=== PATIENT | male | born 1970 | race African-American/Black ===

== ENCOUNTER 2018-10-02 14:56 | Inpatient (IN) ==
[2018-10-02] MEDS ORDERED: fentaNYL Citrate Inj 100 MCG/2 ML Ampul ONE (15:00)
[2018-10-02 15:26] LABS: Baso % (Auto) 0.4 % (0.0-2.0); Eos # (Auto) 0.1 th/mm3 (0.0-0.4); Eos % (Auto) 0.9 % (0.0-4.0); Hematocrit 40.3 % (39.0-51.0); Hemoglobin 14.7 gm/dL (13.0-17.0); Lymph # (Auto) 2.4 th/mm3 (1.0-4.8); Lymph % (Auto) 41.8 % (9.0-44.0); Mean Corpuscular Hemoglobin 33.7 pg (27.0-34.0); Mean Corpuscular Volume 92.3 fL (80.0-100.0); Mean Platelet Volume 7.8 fL (7.0-11.0); Mono # (Auto) 0.5 th/mm3 (0.0-0.9); Mono % (Auto) 7.9 % (0.0-8.0); Neut # (Auto) 2.8 th/mm3 (1.8-7.7); Platelet Count 166 th/mm3 (150-450); Red Blood Count 4.37 mil/mm3 (4.50-5.90); Red Cell Distribution Width 13.2 % (11.6-17.2); White Blood Count 5.7 th/mm3 (4.0-11.0)
[2018-10-02 15:27] LABS: Mean Corpuscular HGB Conc 36.5 % (32.0-36.0)
--- NOTE | 2018-10-02 15:29 | CT ---
EXAM DATE: 10/02/2018 3:26 PM EST AGE/SEX: 89 years / Male INDICATIONS: Trauma, fell off roof. Head injury. CLINICAL DATA: This is the patient's initial encounter. Patient reports that signs and symptoms have been present for 1 day and indicates a pain score of Nonresponsive. MEDICAL/SURGICAL HISTORY: Non-responsive. Non-responsive. RADIATION DOSE: 66.34 CTDI (mGy) ;Tabletop exam COMPARISON: No prior exams available for comparison. TECHNIQUE: CT of the head without contrast. Using automated exposure control and adjustment of the mA and/or kV according to patient size, radiation dose was kept as low as reasonably achievable to ob tain optimal diagnostic quality images. DICOM format image data is available electronically for revi ew and comparison. FINDINGS: Cerebrum: The ventricles are normal for age. No evidence of midline shift, mass lesion, hemorrhage or acute infarction. No extraaxial fluid collections are seen. Posterior Fossa: The cerebellum and brainstem are intact. The 4th ventricle is midline. The cerebe llopontine angle is unremarkable. Extracranial: The visualized portion of the orbits is intact. Skull: The calvaria is intact. No evidence of skull fracture. CONCLUSION: 1. Negative CT Head non contrast. . Electronically signed by: George Espino MD Board Certified Radiologist 10/02/2018 3:27 PM EST
--- NOTE | 2018-10-02 15:29 | XR ---
EXAM DATE: 10/02/2018 3:24 PM EST AGE/SEX: 89 years / Male INDICATIONS: Trauma alert. Patient fell off of a roof at work today. CLINICAL DATA: This is the patient's initial encounter. Patient reports that signs and symptoms have been present for 1 day and indicates a pain score of 10/10. MEDICAL/SURGICAL HISTORY: Non-responsive. Non-responsive. COMPARISON: No prior exams available for comparison. FINDINGS: A single AP view of the chest demonstrates the lungs to be symmetrically aerated without evidence of mass, infiltrate or effusion. The cardiomediastinal contours are unremarkable. Osseous structures a re intact. CONCLUSION: Negative examination. Electronically signed by: George Espino MD Board Certified Radiologist 10/02/2018 3:28 PM EST
--- NOTE | 2018-10-02 15:30 | XR ---
EXAM DATE: 10/02/2018 3:26 PM EST AGE/SEX: 89 years / Male INDICATIONS: Trauma alert. Patient fell off of a roof at work today. CLINICAL DATA: This is the patient's initial encounter. Patient reports that signs and symptoms have been present for 1 day and indicates a pain score of 10/10. MEDICAL/SURGICAL HISTORY: Non-responsive. Non-responsive. COMPARISON: No prior exams available for comparison. FINDINGS: Examination of the pelvis demonstrates no evidence of fracture or dislocation. Bony mineralization i s normal. There is no widening of the sacroiliac joints. No foreign body is identified. Mild degene rative changes are noted involving the hips and lower lumbar spine. CONCLUSION: 1. No acute fracture or dislocation. 2. Mild degenerative changes involving the hips and lower lumbar spine. Electronically signed by: George Espino MD Board Certified Radiologist 10/02/2018 3:28 PM EST
[2018-10-02 15:32] LABS: Activated Partial Thrombo Time 24.7 sec (23.4-31.7); INR 1.1 Ratio; Prothrombin Time 10.7 sec (9.8-11.6)
--- NOTE | 2018-10-02 15:32 | XR ---
EXAM DATE: 10/02/2018 3:22 PM EST AGE/SEX: 89 years / Male INDICATIONS: Trauma alert. Patient fell off roof at work today. CLINICAL DATA: This is the patient's initial encounter. Patient reports that signs and symptoms have been present for 1 day and indicates a pain score of 10/10. MEDICAL/SURGICAL HISTORY: Non-responsive. Non-responsive. COMPARISON: No prior exams available for comparison. FINDINGS: A single view of the forearm demonstrates dislocation of the distal humerus in relation to the radius and ulna. Comminuted displaced fracture of the distal radius is also noted but incompletely evaluate d. Dedicated left wrist series would be helpful for further characterization of this finding. CONCLUSION: 1. Acute dislocation of the distal humerus in relation to the radius and ulna. 2. Comminuted displaced fracture of the distal radius which is incompletely evaluated. Dedicated lef t wrist series would be helpful for further characterization of this finding. Electronically signed by: George Espino MD Board Certified Radiologist 10/02/2018 3:30 PM EST
--- NOTE | 2018-10-02 15:41 | CT ---
EXAM DATE: 10/02/2018 3:33 PM EST AGE/SEX: 89 years / Male INDICATIONS: Trauma, fell of roof. CLINICAL DATA: This is the patient's initial encounter. Patient reports that signs and symptoms have been present for 1 day and indicates a pain score of Nonresponsive. MEDICAL/SURGICAL HISTORY: Non-responsive. Non-responsive. RADIATION DOSE: 6.42 CTDI (mGy) ; Combined studies COMPARISON: No prior exams available for comparison. TECHNIQUE: Multiple contiguous axial images were obtained through the chest during bolus infusion of 98 ml Omnipaque 350 (iohexol) nonionic water-soluble contrast as a cumulative dose for multiple exa ms. Images were obtained in suspended respiration using multiple row detector helical technique. U sing automated exposure control and adjustment of the mA and/or kV according to patient size, radiati on dose was kept as low as reasonably achievable to obtain optimal diagnostic quality images. DICOM format image data is available electronically for review and comparison. FINDINGS: Lungs: The lungs are symmetrically aerated. No infiltrates or nodular densities are seen. Mild biba silar posterior atelectatic changes are noted. Mediastinum: There is good visualization of the great vessels of the middle mediastinum. No evidenc e of mediastinal or hilar adenopathy/mass. Pleurae: No evidence of focal thickening or pleural effusion. Axillae: Unremarkable. Bony Structures: Degenerative changes are noted throughout the thoracic spine. Miscellaneous: The examination was extended to include the upper abdomen, and both adrenal glands ar e normal in size and configuration. CONCLUSION: 1. No acute intrathoracic trauma. 2. Mild bibasilar posterior atelectatic changes. 3. Degenerative changes are noted throughout the thoracic spine. Electronically signed by: George Espino MD Board Certified Radiologist 10/02/2018 3:40 PM EST
--- NOTE | 2018-10-02 15:46 | CT ---
EXAM DATE: 10/02/2018 3:34 PM EST AGE/SEX: 89 years / Male INDICATIONS: Trauma, fell of roof. CLINICAL DATA: This is the patient's initial encounter. Patient reports that signs and symptoms have been present for 1 day and indicates a pain score of Nonresponsive. MEDICAL/SURGICAL HISTORY: Non-responsive. Non-responsive. ORAL CONTRAST: No oral contrast ingested. RADIATION DOSE: 6.42 CTDI (mGy) ; Combined studies COMPARISON: No prior exams available for comparison. TECHNIQUE: Multiple contiguous axial images were obtained through the abdomen and pelvis following b olus infusion of 98 ml Omnipaque 350 (iohexol) nonionic water-soluble contrast as a cumulative dose for multiple exams. No oral contrast ingested. Using automated exposure control and adjustment of t he mA and/or kV according to patient size, radiation dose was kept as low as reasonably achievable to obtain optimal diagnostic quality images. DICOM format image data is available electronically for r eview and comparison. FINDINGS: Lower Lungs: The visualized lower lungs are clear. Liver: The liver has a homogeneous density without space-occupying lesion. There is no dilation of th e biliary tree. Spleen: Homogeneous density without enlargement. Pancreas: Unremarkable without mass or calcification. Kidneys: Normal in size and shape. No evidence of mass or hydronephrosis. Bilateral renal cysts are noted measuring 15 mm on the right and 10 mm on the left. Adrenal Glands: Unremarkable. Aorta: The aorta and proximal iliac vessels are grossly unremarkable without aneurysmal dilation. Bowel/Mesentery: Uncomplicated colonic diverticulosis is noted. No acute diverticulitis is noted. Abdominal Wall: Intact. Retroperitoneum: No evidence of adenopathy in the retrocrural, para-aortic, or deep pelvic regions. Bladder: Contours are smooth. Reproductive Organs: No abnormal masses or calcifications seen. Inguinal: The inguinal region is unremarkable without evidence of adenopathy. Bony Structures: Degenerative changes and scoliosis of the thoracolumbar spine are noted. CONCLUSION: 1. No acute intra-abdominal trauma. 2. Uncomplicated colonic diverticulosis. 3. Degenerative changes and scoliosis of the thoracolumbar spine. Electronically signed by: George Espino MD Board Certified Radiologist 10/02/2018 3:44 PM EST
--- NOTE | 2018-10-02 15:51 | CT ---
EXAM DATE: 10/02/2018 3:40 PM EST AGE/SEX: 89 years / Male INDICATIONS: Trauma, fell off roof. CLINICAL DATA: This is the patient's initial encounter. Patient reports that signs and symptoms have been present for 1 day and indicates a pain score of Nonresponsive. MEDICAL/SURGICAL HISTORY: Non-responsive. Non-responsive. RADIATION DOSE: 23.47 CTDI (mGy) COMPARISON: No prior exams available for comparison. TECHNIQUE: Contiguous axial images were obtained using helical multirow detector technique. The vol umetric data was post-processed with multiplanar reconstruction in oblique axial, sagittal, and coron al planes. Using automated exposure control and adjustment of the mA and/or kV according to patient s ize, radiation dose was kept as low as reasonably achievable to obtain optimal diagnostic quality sherrie ges. DICOM format image data is available electronically for review and comparison. FINDINGS: No acute fracture or prevertebral soft tissue swelling is noted. Diffuse cervical spondylosis is note d from C2 through T1. Multilevel foraminal narrowing is noted and described below. No spinal stenosis is noted. The bony relation and alignment between C1 and C2 is well maintained. C2-3: The bony spinal canal is normal in size. No evidence of disc bulge or herniation. The neural foramina are bilaterally patent. C3-4: The bony spinal canal is normal in size. No evidence of disc bulge or herniation. Mild right neuroforaminal narrowing and no left neuroforaminal narrowing. C4-5: The bony spinal canal is normal in size. No evidence of disc bulge or herniation. Moderate ri ght neuroforaminal narrowing and mild left neuroforaminal narrowing are noted. C5-6: The bony spinal canal is normal in size. No evidence of disc bulge or herniation. Moderate r ight neuroforaminal narrowing and mild left neuroforaminal narrowing are noted. C6-7: The bony spinal canal is normal in size. No evidence of disc bulge or herniation. Mild left n eural foraminal narrowing and no right neuroforaminal narrowing C7-T1: The bony spinal canal is normal in size. No evidence of disc bulge or herniation. The neura l foramina are bilaterally patent. CONCLUSION: 1. Moderate right neuroforaminal narrowing and mild left neuroforaminal at C4-5 and C5-6, mild left neuroforaminal narrowing at C6-7 and mild right neuroforaminal narrowing at C3-4. 2. No acute fracture or prevertebral soft tissue swelling. 3. Diffuse cervical spondylosis as described above. Electronically signed by: George Espino MD Board Certified Radiologist 10/02/2018 3:50 PM EST
--- NOTE | 2018-10-02 16:02 | ED ---
HPI General Chief Complaint: Fall Stated Complaint: Trauma alert / fall Source: patient Mode of arrival: ambulatory Limitations: no limitations History of Present Illness HPI Narrative: Is a well 49 [id number] male, fall from about 15 feet from a ladder striking a dumpster on the way to the ground. Left arm pain and deformity. Questionable LOC. No other complaints. Otherwise healthy. No medications. Called as a level 2 trauma or my discretion based on EMS field report. Pain is severe in the left wrist, nonradiating. Worse with movement no other aggravating or alleviating factors. Unable to establish IV access in the field. Related Data Home Medications Medication Instructions Recorded Confirmed No Known Home Medications 10/02/18 10/02/18 Allergies Allergy/AdvReac Type Severity Reaction Status Date / Time No Known Allergies Allergy Verified 10/02/18 15:50 Review of Systems ROS: all other systems reviewed are negative [facility] Medical History Medical History No significant past medical history (Acute) Social History Social History Substance History: No History of Abuse Smoking Status: Current every day smoker Tobacco Type: Cigarettes How Often Do You Have a Drink Containing Alcohol: 2 to 3 times a week Recent Travel in [place] within the Last 8 Weeks: No Recent Out of Country Travel within the Last 8 Weeks: No Immunization History Tetanus Immunization: Never Vaccinated Exam Narrative Exam Narrative: GENERAL: 56-year-old male, full spinal mobilization, nontoxic. SKIN: Focused skin assessment warm/dry. HEAD: Normocephalic. Abrasion to the left forehead and left brow. EYES: Pupils equal and round. No scleral icterus. No injection or drainage. ENT: No nasal bleeding or discharge. Mucous membranes pink and moist. NECK: C-collar in place. No obvious deformity. CARDIOVASCULAR: Regular rate and rhythm. No murmur appreciated. RESPIRATORY: No accessory muscle use. Clear to auscultation. Breath sounds equal bilaterally. GASTROINTESTINAL: Abdomen soft, non-tender, nondistended. Hepatic and splenic margins not palpable. MUSCULOSKELETAL: Obvious deformity to the left wrist. Refusal to really move the hand or wrist due to pain. Good capillary refill. Tenderness and deformity to the elbow. Back exam is unremarkable NEUROLOGICAL: Awake and alert. No obvious cranial nerve deficits. Motor grossly within normal limits. Normal speech. PSYCHIATRIC: Appropriate mood and affect; insight and judgment normal. Procedures Orthopedic Fracture Reduction left wrist: Time Out Performed: Yes Side: left Fracture Reduction Location: radius and ulna Analgesia: procedural sedation Technique: direct manipulation and traction/counter-traction Post Reduction X-rays Demonstrate: anatomical reduction Post-Reduction Neuro Exam: no change Post-Reduction Vascular Exam: no change Splint Applied: Yes Patient Tolerated Procedure: well Orthopedic Joint Reduction elbow: Time Out Performed: Yes Side: left Joint Reduction Location: elbow Analgesia: procedural sedation Shoulder Technique Used (if applicable): other Technique Used: direct manipulation Post-Reduction Neuro Exam: no change Post-Reduction Vascular Exam: no change Post Reduction X-Ray Obtained: Yes Post Reduction X-Ray Results: reduced Splint Applied: Yes Patient Tolerated Procedure: well Procedural Sedation Indications: fracture/dislocation reduction ASA Class: ASA 2 Moderate Systemic Disease Preparation: director of conservation applied, pulse oximeter, capnometry used, supplemental O2 applied, suction/airway equipment at bedside and IV secured IV Propofol Dose (mgs): 130 Patient Tolerated Procedure: well Complications: none Interventions: oxygen applied and airway repositioned Course Initial Documented Vital Signs Pulse Oximetry 99 10/02/18 15:21 Last Documented Vital Signs Temperature 99 F 10/02/18 15:38 Pulse Rate 93 H 10/02/18 15:49 Respiratory Rate 16 10/02/18 15:38 Blood Pressure 161/92 H 10/02/18 15:38 Pulse Oximetry 98 10/02/18 15:49 Critical Care Time Critical Care Time: Yes Total Critical Care Time: 45 Attestation: Aggregate critical care time was 45 minutes. Time to perform other separately billable procedures was not included in the critical care time. My time did not include minutes spent treating any other patients simultaneously or on activities that did not directly contribute to the patient's treatment. The services I provided to this patient were to treat and/or prevent clinically significant deterioration that could result in: , disability, unrecognized injury. I provided critical care services requiring my management, as noted below: Chart data review, documentation time, medication orders and management, vital sign assessments/reviewing monitor data, ordering and reviewing lab tests, ordering and interpreting/reviewing x-rays and diagnostic studies, care of the patient and discussion of the patient with the admitting physicians. Medical Decision Making MDM Narrative Medical decision making narrative: 49-year-old man, fall, dependent deformity and pain to the left arm. Left fracture deformity to the left wrist and left elbow dislocation. Reduced in the trauma bay. CT is obtained. Will admit to trauma. Spoke with orthopedics, will consult on patient. Request CT imaging. Medical Screen Exam Complete: Yes Emergency Medical Condition: Yes Lab Data Lab results reviewed: Yes I reviewed the patient's lab results. Result diagrams: 10/02/18 15:00 Lab Results 10/02/18 10/02/18 10/02/18 Range/Units 15:00 15:00 15:00 WBC 5.7 (4.0-11.0) th/mm3 RBC 4.37 L (4.50-5.90) mil/mm3 Hgb 14.7 (13.0-17.0) gm/dL POC Hgb (Calc) 13.9 (13.0-17.0) g/dL Hct 40.3 (39.0-51.0) % POC Hct 41.0 (39-51.0) % MCV 92.3 (80.0-100.0) fL MCH 33.7 (27.0-34.0) pg MCHC 36.5 H (32.0-36.0) % RDW 13.2 (11.6-17.2) % Plt Count 166 (150-450) th/mm3 MPV 7.8 (7.0-11.0) fL Prelim Diff (Auto) Ortho Rn Neut % (Auto) 49.0 (16.0-70.0) % Lymph % (Auto) 41.8 (9.0-44.0) % Burke % (Auto) 7.9 (0.0-8.0) % Eos % (Auto) 0.9 (0.0-4.0) % Baso % (Auto) 0.4 (0.0-2.0) % Neut # (Auto) 2.8 (1.8-7.7) th/mm3 Lymph # (Auto) 2.4 (1.0-4.8) th/mm3 Burke # (Auto) 0.5 (0.0-0.9) th/mm3 Eos # (Auto) 0.1 (0.0-0.4) th/mm3 Baso # (Auto) 0.0 (0.0-0.2) th/mm3 WBC Differential . Differential Comment Auto diff final PT 10.7 (9.8-11.6) sec INR 1.1 Ratio APTT 24.7 (23.4-31.7) sec POC Sodium 140 (137-144) mmol/L POC Potassium 3.7 (3.6-5.0) mmol/L POC Chloride 100 L (102-111) mmol/L POC BUN 12 (5-21) mg/dL POC Creatinine 1.0 (0.6-1.3) mg/dL POC Glucose 128 H (68-110) mg/dL Blood Type Antibody Screen 10/02/18 Range/Units 15:00 WBC (4.0-11.0) th/mm3 RBC (4.50-5.90) mil/mm3 Hgb (13.0-17.0) gm/dL POC Hgb (Calc) (13.0-17.0) g/dL Hct (39.0-51.0) % POC Hct (39-51.0) % MCV (80.0-100.0) fL MCH (27.0-34.0) pg MCHC (32.0-36.0) % RDW (11.6-17.2) % Plt Count (150-450) th/mm3 MPV (7.0-11.0) fL Prelim Diff (Auto) Neut % (Auto) (16.0-70.0) % Lymph % (Auto) (9.0-44.0) % Burke % (Auto) (0.0-8.0) % Eos % (Auto) (0.0-4.0) % Baso % (Auto) (0.0-2.0) % Neut # (Auto) (1.8-7.7) th/mm3 Lymph # (Auto) (1.0-4.8) th/mm3 Burke # (Auto) (0.0-0.9) th/mm3 Eos # (Auto) (0.0-0.4) th/mm3 Baso # (Auto) (0.0-0.2) th/mm3 WBC Differential Differential Comment PT (9.8-11.6) sec INR Ratio APTT (23.4-31.7) sec POC Sodium (137-144) mmol/L POC Potassium (3.6-5.0) mmol/L POC Chloride (102-111) mmol/L POC BUN (5-21) mg/dL POC Creatinine (0.6-1.3) mg/dL POC Glucose (68-110) mg/dL Blood Type O Positive Antibody Screen Negative Imaging Data Attestation: I personally reviewed and interpreted this imaging study as follows : My impression: Left elbow dislocation, left wrist both bone forearm fracture Radiologist's impression: Chest X-Ray 10/02/18 14:59 CONCLUSION: Negative examination. Pelvis X-Ray 10/02/18 14:59 CONCLUSION: 1. No acute fracture or dislocation. 2. Mild degenerative changes involving the hips and lower lumbar spine. Radius/Ulna X-Ray 10/02/18 15:03 CONCLUSION: 1. Acute dislocation of the distal humerus in relation to the radius and ulna. 2. Comminuted displaced fracture of the distal radius which is incompletely evaluated. Dedicated left wrist series would be helpful for further characterization of this finding. Abdomen/Pelvis CT 10/02/18 15:15 CONCLUSION: 1. No acute intra-abdominal trauma. 2. Uncomplicated colonic diverticulosis. 3. Degenerative changes and scoliosis of the thoracolumbar spine. Cervical Spine CT 10/02/18 15:15 CONCLUSION: 1. Moderate right neuroforaminal narrowing and mild left neuroforaminal at C4- 5 and C5-6, mild left neuroforaminal narrowing at C6-7 and mild right neuroforaminal narrowing at C3-4. 2. No acute fracture or prevertebral soft tissue swelling. 3. Diffuse cervical spondylosis as described above. Chest CT 10/02/18 15:15 CONCLUSION: 1. No acute intrathoracic trauma. 2. Mild bibasilar posterior atelectatic changes. 3. Degenerative changes are noted throughout the thoracic spine. Head CT 10/02/18 15:15 CONCLUSION: 1. Negative CT Head non contrast. . Discharge Plan Discharge Disposition Patient Disposition: ED Admit(ED Internal Use Only) Discharge Order Discharge Orders: ED Use Only Admit Order (Routine); Ordered 10/02/18 Ordered By: Luis Haas Physicians Team ED Provider: Luis Haas Primary Care Provider: UNKNOWN, Attending Provider: Jeferson Sinha Status ED Status: Admitted Patient
--- NOTE | 2018-10-02 16:16 | XR ---
EXAM DATE: 10/02/2018 3:53 PM EST AGE/SEX: 89 years / Male INDICATIONS: Post reduction. Trauma alert. Patient fell off of a roof while at work today. CLINICAL DATA: This is the patient's subsequent encounter. Patient reports that signs and symptoms h ave been present for 1 day and indicates a pain score of 9/10. MEDICAL/SURGICAL HISTORY: Non-responsive. Non-responsive. COMPARISON: [facility] [place], FOREARM LEFT 1V, 10/02/2018. . FINDINGS: Again seen is the impacted fracture of the distal radius and ulna in reasonable alignment in fibergla ss. There is probably continued dislocation of the elbow. Dedicated elbow films are suggested. CONCLUSION: Reasonable alignment at the wrist. Dedicated elbow films are suggested to evaluate the alignment at the elbow. Electronically signed by: Polo Molina MD Board Certified Radiologist 10/02/2018 4:15 PM EST
[2018-10-02] MEDS ORDERED: Bisacodyl 10 MG Supp RECTAL PRN (16:32)
[2018-10-02] MEDS ORDERED: Naloxone Inj 0.4 MG/ML Vial IV.PUSH PRN (16:32)
[2018-10-02] MEDS ORDERED: Post-op Orders (for Pharmacy) OTHER ONE (16:32)
--- NOTE | 2018-10-02 16:52 | XR ---
EXAM DATE: 10/02/2018 4:41 PM EST AGE/SEX: 89 years / Male INDICATIONS: Post reduction left elbow. CLINICAL DATA: This is the patient's initial encounter. Patient reports that signs and symptoms have been present for 1 day and indicates a pain score of 10/10. MEDICAL/SURGICAL HISTORY: Non-responsive. Non-responsive. COMPARISON: [facility] – [place], FOREARM LEFT 2V, 10/02/2018. . FINDINGS: There has been successful closed reduction of the elbow dislocation with no definite underlying palpa ble fracture identified on these limited films. A cast has been applied to the arm. Comminuted fractu re involving the distal radius is noted and involves the articular surface. CONCLUSION: 1. Successful closed reduction of the elbow dislocation with no definite underlying palpable fractur e identified on these limited films. A cast has been applied to the arm. 2. Comminuted fracture involving the distal radius is noted and involves the articular surface. Electronically signed by: George Espino MD Board Certified Radiologist 10/02/2018 4:51 PM EST
--- NOTE | 2018-10-02 16:59 | MH ---
cc: Jeferson Sinha MD DATE OF ADMISSION: 10/02/2018 ADMITTING PHYSICIAN: Jeferson Sinha MD ADMITTING DIAGNOSES: Fall from height, fracture of the left wrist and possibly elbow. HISTORY OF PRESENT ILLNESS: This 65-[id number]-da[age]-old gentleman was working on the ladder, fell off of it down to a dumpster on the way to the ground from about 12-15 feet. The patient has complaints of pain in his left arm with obvious deformity. He did not lose consciousness according to him, but might have. Was called as level 2 trauma alert based on field report. The patient was transferred to our institution as such. PAST MEDICAL HISTORY: None. The patient does not state any surgical history. SOCIAL HISTORY: The patient smokes a pack of cigarettes a day, drinks about 3-4 times a week. PHYSICAL EXAMINATION: GENERAL: Reveals a 56-year-old male. HEENT: Normocephalic. Trauma to the head consisting of bruising of the left forehead, very superficial. Pupils are equal and reactive. Extraocular muscles intact. No signs of hemotympanum. No babcock sign, no raccoon's eyes. Oral cavity intact. NECK: Bilateral carotid pulses. No bruits. No signs of trauma to the neck. C-collar is still in place. CHEST: Bilateral breath sounds. HEART: Regular rhythm. No signs of trauma to the chest. ABDOMEN: Soft, active bowel sounds. No rebound or guarding. No masses. PELVIS: Stable. EXTREMITIES: The patient has bilateral femoral, popliteal, dorsalis pedis and posterior tibial pulses, bilateral radial, ulnar, and brachial pulses. He does have clear deformity of the left wrist with good capillary refill. NEUROLOGIC: The patient is neurologically fully intact. [place] coma scale is 15. Sensory and motorically fully intact except for the obvious limitations of movement in the left arm. IMPRESSION: The patient with clear wrist fracture and possible elbow fracture or perhaps just swelling of the left elbow. Will be admitted to the trauma service. Appropriate service is consulted. Jeferson Sinha MD SJ/ct , 04:31 PM , 04:39 PM
[2018-10-02] MEDS: Sod Chloride 0.9% Inj 1,000 ML IV.CONT SCH (17:23)
--- NOTE | 2018-10-02 17:25 | CT ---
EXAM DATE: 10/02/2018 5:16 PM EST AGE/SEX: 89 years / Male INDICATIONS: Trauma. Patient fell from roof. Distal radial fracture. Distal humerus dislocation. CLINICAL DATA: This is the patient's initial encounter. Patient reports that signs and symptoms have been present for 1 day and indicates a pain score of 8/10. MEDICAL/SURGICAL HISTORY: None. Non-responsive. RADIATION DOSE: 19.88 CTDI (mGy) COMPARISON: No prior exams available for comparison. TECHNIQUE: Multiple contiguous axial images were acquired using a multi-row detector CT scanner. Mu ltiplanar reconstruction was performed in the sagittal and coronal planes. Using automated exposure control and adjustment of the mA and/or kV according to patient size, radiation dose was kept as low as reasonably achievable to obtain optimal diagnostic quality images. DICOM format image data is noé ilable electronically for review and comparison. FINDINGS: There is a tiny bony flake adjacent to the medial epicondyle of the distal humerus consistent with pr obable tiny avulsion fracture. There is a questionable very subtle nondisplaced fracture involving th e proximal ulna. The proximal radius appears to be intact. Diffuse soft tissue swelling is noted surr ounding the elbow. MRI of the elbow would be more sensitive for soft tissue abnormalities if clinical ly indicated. Olecranon spur is noted. The previously noted elbow dislocation has been successfully r educed. CONCLUSION: 1. Tiny bony flake adjacent to the medial epicondyle of the distal humerus consistent with probable tiny avulsion fracture. 2. Questionable very subtle nondisplaced fracture involving the proximal ulna. The proximal radius a ppears to be intact. 3. Diffuse soft tissue swelling is noted surrounding the elbow. MRI of the elbow would be more sensi tive for soft tissue abnormalities if clinically indicated. 4. Olecranon spur is noted. 5. The previously noted elbow dislocation has been successfully reduced. Electronically signed by: George Espino MD Board Certified Radiologist 10/02/2018 5:24 PM EST
--- NOTE | 2018-10-02 17:28 | CT ---
EXAM DATE: 10/02/2018 5:17 PM EST AGE/SEX: 89 years / Male INDICATIONS: Trauma. Patient fell from roof. Distal radial fracture. Distal humerus dislocation. CLINICAL DATA: This is the patient's initial encounter. Patient reports that signs and symptoms have been present for 1 day and indicates a pain score of 8/10. MEDICAL/SURGICAL HISTORY: None. None. RADIATION DOSE: 18.38 CTDI (mGy) COMPARISON: No prior exams available for comparison. TECHNIQUE: Multiple contiguous axial images were acquired using a multirow detector CT scanner witho ut contrast. Multiplanar reconstruction was performed in the sagittal and coronal planes. Using aut omated exposure control and adjustment of the mA and/or kV according to patient size, radiation dose was kept as low as reasonably achievable to obtain optimal diagnostic quality images. DICOM format i mage data is available electronically for review and comparison. FINDINGS: Bones: There is evidence of an acute comminuted impacted fracture involving the distal radius with in volvement of the articular surface. The distal ulna appears to be intact without fracture. There is n o evidence of dislocation. The carpal bones are intact without fracture. Mild degenerative changes ar e noted involving the first carpometacarpal joint. CONCLUSION: 1. Acute comminuted impacted fracture involving the distal radius with involvement of the articular surface. 2. Mild degenerative changes are noted involving the first carpometacarpal joint. Electronically signed by: George Espino MD Board Certified Radiologist 10/02/2018 5:27 PM EST
[2018-10-02] MEDS: Morphine Sulfate Inj 2 MG/ML Vial IV.PUSH PRN (20:23)
[2018-10-02] MEDS: Senna/Docusate Sodium 8.6/50 MG Tablet PO SCH (20:28)
[2018-10-02] MEDS: Famotidine 20 MG Tablet PO SCH (20:28)
[2018-10-03] MEDS ORDERED: Chlorhexidine Gluconate 2% 1 Pack (2 Cloths) TOPICAL ONE (00:33)
[2018-10-03] MEDS ORDERED: Metoprolol Tartrate 25 MG Tablet PO SCH (00:33)
[2018-10-03] MEDS ORDERED: Sodium Chloride 0.9% 2 ML Flush PRN IV.FLUSH (00:39)
[2018-10-03] MEDS ORDERED: Sodium Chlor 0.9% Inj 500 ML IV.SIG SCH (01:00)
[2018-10-03] MEDS: Morphine Sulfate Inj 2 MG/ML Vial IV.PUSH PRN (05:18)
[2018-10-03] MEDS: Sodium Chloride 0.9% 2 ML Flush BID IV.FLUSH SCH ×2 (06:40→20:34)
[2018-10-03] MEDS ORDERED: ceFAZolin 1 GM Premix Inj 2 GM/100 ML PIGGYBACK IV.SIG ONE (07:23)
[2018-10-03] MEDS ORDERED: Bupivacaine/Epinephrine 0.5% Inj 50 ML Vial ONE (07:49)
[2018-10-03] MEDS: Senna/Docusate Sodium 8.6/50 MG Tablet PO SCH ×2 (09:00→20:33)
[2018-10-03] MEDS: Famotidine 20 MG Tablet PO SCH ×2 (09:00→20:33)
[2018-10-03] MEDS ORDERED: Morphine Inj 4 MG/ML Vial IV.PUSH PRN (09:09)
[2018-10-03] MEDS ORDERED: Temazepam 15 MG Capsule PO PRN (09:09)
[2018-10-03] MEDS ORDERED: Post-op Orders (for Pharmacy) OTHER STA (09:09)
--- NOTE | 2018-10-03 09:09 | P.CONOP ---
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 He struck his left elbow and arm on the way to the ground. He was brought to [facility] as a trauma stat. I have been asked to see him for injuries of his left arm including a dislocated left elbow and comminuted fracture of the left distal radius. I spoke with emergency room physician. Instructions were given. He had a reduction of the dislocation and placed in a splint. A CT scan of the elbow and wrist has been performed Review of Systems All other systems reviewed negative except as stated in [facility] - History History Provided By: Patient - Medical History Medical History: Medical History (Last Updated 10/02/18 @ 15:58 by Luis Haas MD) No significant past medical history - Tobacco History Second Hand Smoke Exposure: Yes Tobacco Use In Past 30 Days: Yes Smoking Status: Current every day smoker Tobacco Type: Cigarettes - Alcohol History How Often Do You Have a Drink Containing Alcohol: 2 to 3 times a week - Substance Use History Substance History: Past History - Substance Use Type Marijuana Status: Sustained Remission - Travel History Recent Travel in the [place] Within the Last 8 Weeks: No Recent Travel Out of the Country Within the Last 8 Weeks: No - Immunization History Tetanus Immunization: Unsure Hx Influenza Vaccine This Season: No Medications and Allergies Active Medications: Active Medications Al Hydroxide/Mg Hydroxide (Milk Of Ed Parmar) 30 ml PO Q12H PRN PRN Reason: Mild Constipation Bisacodyl (Dulcolax Supp) 10 mg RECTAL DAILY PRN PRN Reason: SEVERE CONSITIPATION Famotidine (Pepcid) 20 mg PO BID [facility] Last Admin: 10/02/18 20:28 Dose: Not Given Sodium Chloride (Ns Inj) 1,000 mls @ 100 mls/hr IV.CONT .Q10H [facility] Last Admin: 10/02/18 17:23 Dose: 100 mls/hr Lactated Ringer's (Lr 1000 Ml Inj) 1,000 mls @ 30 mls/hr IV.SIG .Q24H [facility] Stop: 10/04/18 00:44 Last Admin: 10/03/18 06:40 Dose: 30 mls/hr Sodium Chloride (Ns Inj) 500 mls @ 30 mls/hr IV.SIG .[id number] [facility] Stop: 10/03/18 17:39 Last Admin: 10/03/18 07:14 Dose: Not Given Lactulose (Lactulose Liq) 30 ml PO DAILY PRN PRN Reason: SEVERE CONSITIPATION Metoprolol Tartrate (Lopressor) 25 mg PO BOX [place] UPHOLSTERER [facility] Stop: 10/04/18 00:32 Last Admin: 10/03/18 07:14 Dose: Not Given Morphine Sulfate (Morphine Inj) 2 mg IV.PUSH Q3H PRN PRN Reason: PAIN 3-5; IF UABLE TO TAKE PO Last Admin: 10/03/18 05:18 Dose: 2 mg Naloxone HCl (Narcan Inj) 0.4 mg IV.PUSH UNSCH PRN PRN Reason: SEE LABEL COMMENTS Ondansetron HCl (Zofran Inj) 4 mg IV.PUSH Q6H PRN PRN Reason: NAUSEA OR VOMITING Senna/Docusate Sodium (Queta-Colace) 1 tab PO BID [facility] Last Admin: 10/02/18 20:28 Dose: Not Given Sennosides (Senokot) 17.2 mg PO Q12H PRN PRN Reason: Moderate Constipation Sodium Chloride (Ns Flush) 2 ml IV.FLUSH BID [facility] Sodium Chloride (Ns Flush) 2 ml IV.FLUSH PRN PRN PRN Reason: FLUSH AFTER USING IV ACCESS Allergies Allergy/AdvReac Type Severity Reaction Status Date / Time No Known Allergies Allergy Verified 10/02/18 15:50 Home Medications Medication Instructions Recorded Confirmed Type No Known Home Medications 10/02/18 10/02/18 History Exam Vital signs: Vital Signs 10/02/18 15:21 10/02/18 15:22 10/02/18 15:38 Temperature 99 F Pulse Rate 96 H Respiratory Rate 16 Blood Pressure 161/92 H Pulse Oximetry 99 99 99 10/02/18 15:49 10/02/18 16:44 10/02/18 18:22 Temperature Pulse Rate 93 H 97 H Respiratory Rate 16 Blood Pressure 164/94 H Pulse Oximetry 98 97 98 10/02/18 20:00 10/02/18 23:09 10/03/18 03:06 Temperature 100.0 F H 99.3 F 99.2 F Pulse Rate 98 H 91 H 84 Respiratory Rate 18 17 17 Blood Pressure 130/81 125/77 124/77 Pulse Oximetry 96 98 98 Intake & Output 10/02/18 10/03/18 10/03/18 18:59 06:59 18:59 Intake Total 900 / 900 Output Total 550 / 550 Balance -550 / -550 875 / 875 Weight 82 kg 81.8 kg Intake: IV 100 / 100 Ancef 1 GM Premix Inj 2 gm In 100 / 100 100 ml @ 0 mls/hr IV.SIG .STK- MED ONE Rx#:[id number] Anesthesia Amount 800 / 800 Output: Urine 550 / 550 Estimated Blood Loss Other: Date of Last Bowel Movement 10/02/18 Weight On Admission 82 kg Narrative: HEENT: Normocephalic atraumatic pupils equal round reactive. NECK: Supple. No abnormal masses. Full range of motion. CHEST: Clear to auscultation with no rales or rhonchi's or wheezes. HEART: Regular rate and rhythm. No murmurs. ABDOMEN: Soft, nontender, no masses. Normal active bowel sounds. GENITOURINARY: Deferred MUSCULOSKELETAL: Left shoulder and right elbow and wrist is normal with no swelling or deformity. Both hips knees and ankles are with out obvious deformity crepitus or pain with examination. Left arm: There is a long-arm splint. Mild tenderness to palpation in the region of the elbow. Slight tingling in the index finger. Otherwise sensation is almost normal. He wiggles his fingers. He has mild pain Results - Labs Result Diagrams: 10/02/18 15:00 Labs: Laboratory Results - last 24 hr 10/02/18 10/02/18 10/02/18 15:00 15:00 15:00 WBC 5.7 RBC 4.37 L Hgb 14.7 POC Hgb (Calc) 13.9 Hct 40.3 POC Hct 41.0 MCV 92.3 MCH 33.7 MCHC 36.5 H RDW 13.2 Plt Count 166 MPV 7.8 Prelim Diff (Auto) Virtualization Engineer Neut % (Auto) 49.0 Lymph % (Auto) 41.8 [place] % (Auto) 7.9 Eos % (Auto) 0.9 Baso % (Auto) 0.4 Neut # (Auto) 2.8 Lymph # (Auto) 2.4 [place] # (Auto) 0.5 Eos # (Auto) 0.1 Baso # (Auto) 0.0 WBC Differential . Differential Comment Auto diff final PT 10.7 INR 1.1 APTT 24.7 POC Sodium 140 POC Potassium 3.7 POC Chloride 100 L POC BUN 12 POC Creatinine 1.0 POC Glucose 128 H Blood Type Antibody Screen 10/02/18 15:00 WBC RBC Hgb POC Hgb (Calc) Hct POC Hct MCV MCH MCHC RDW Plt Count MPV Prelim Diff (Auto) Neut % (Auto) Lymph % (Auto) [place] % (Auto) Eos % (Auto) Baso % (Auto) Neut # (Auto) Lymph # (Auto) [place] # (Auto) Eos # (Auto) Baso # (Auto) WBC Differential Differential Comment PT INR APTT POC Sodium POC Potassium POC Chloride POC BUN POC Creatinine POC Glucose Blood Type O Positive Antibody Screen Negative - Diagnostic results Imaging: Impressions Forearm X-Ray 10/02/18 00:00 CONCLUSION: Reasonable alignment at the wrist. Dedicated elbow films are suggested to evaluate the alignment at the elbow. Chest X-Ray 10/02/18 14:59 CONCLUSION: Negative examination. Pelvis X-Ray 10/02/18 14:59 CONCLUSION: 1. No acute fracture or dislocation. 2. Mild degenerative changes involving the hips and lower lumbar spine. Radius/Ulna X-Ray 10/02/18 15:03 CONCLUSION: 1. Acute dislocation of the distal humerus in relation to the radius and ulna. 2. Comminuted displaced fracture of the distal radius which is incompletely evaluated. Dedicated left wrist series would be helpful for further characterization of this finding. Abdomen/Pelvis CT 10/02/18 15:15 CONCLUSION: 1. No acute intra-abdominal trauma. 2. Uncomplicated colonic diverticulosis. 3. Degenerative changes and scoliosis of the thoracolumbar spine. Cervical Spine CT 10/02/18 15:15 CONCLUSION: 1. Moderate right neuroforaminal narrowing and mild left neuroforaminal at C4- 5 and C5-6, mild left neuroforaminal narrowing at C6-7 and mild right neuroforaminal narrowing at C3-4. 2. No acute fracture or prevertebral soft tissue swelling. 3. Diffuse cervical spondylosis as described above. Chest CT 10/02/18 15:15 CONCLUSION: 1. No acute intrathoracic trauma. 2. Mild bibasilar posterior atelectatic changes. 3. Degenerative changes are noted throughout the thoracic spine. Head CT 10/02/18 15:15 CONCLUSION: 1. Negative CT Head non contrast. . Elbow CT 10/02/18 15:42 CONCLUSION: 1. Tiny bony flake adjacent to the medial epicondyle of the distal humerus consistent with probable tiny avulsion fracture. 2. Questionable very subtle nondisplaced fracture involving the proximal ulna. The proximal radius appears to be intact. 3. Diffuse soft tissue swelling is noted surrounding the elbow. MRI of the elbow would be more sensitive for soft tissue abnormalities if clinically indicated. 4. Olecranon spur is noted. 5. The previously noted elbow dislocation has been successfully reduced. There appears to be a nondisplaced coronoid fracture of the ulna. No loose bodies Wrist CT 10/02/18 15:42 CONCLUSION: 1. Acute comminuted impacted fracture involving the distal radius with involvement of the articular surface. 2. Mild degenerative changes are noted involving the first carpometacarpal joint. I agree with the radiologist interpretation. There is a highly comminuted intra -articular fracture of the distal radius with comminution of the articular surface. This is at least 4 or 5 parts Elbow X-Ray 10/02/18 16:18 CONCLUSION: 1. Successful closed reduction of the elbow dislocation with no definite underlying palpable fracture identified on these limited films. A cast has been applied to the arm. 2. Comminuted fracture involving the distal radius is noted and involves the articular surface. Assessment and Plan - Assessment and Plan Trauma stat patient. Comminuted intra-articular fracture left distal radius. Dislocation left elbow. Fracture left proximal ulna, coronoid process PLAN: Surgical treatment of the left wrist with open treatment and internal fixation with a volar plate and screws. Nonsurgical treatment of the left elbow. Evaluation under anesthesia for placement into a long-arm splint after surgery. Consent: There are risks with surgery including infection, bleeding, loss of motion, neurologic or vascular injury, need for further surgery, failure bone, failure of hardware. Patient understand these issues and wishes to proceed forward with surgery as outlined above. The patient was explained that he may develop an instability of the elbow requiring delayed surgical treatment.
--- NOTE | 2018-10-03 09:15 | P.OP ---
- Preoperative Diagnosis (1) Fracture of left distal radius Preoperative Diagnosis: Fracture left distal radius, intra-articular, comminuted, 4-5 part. Dislocation left elbow Postoperative Diagnosis: Same Date of procedure: 10/03/18 Procedure: Open treatment internal fixation left distal radius fracture with volar plate and screws. Evaluation of left elbow under anesthesia Surgeon: Amarjit Washington MD Wastewater Project Engineer: Juliet Mcdaniel PA-C Operation and Findings: EBL: 50 cc INDICATIONS: This patient is a 48-year-old male involved in a work injury where he fell from a roof sustaining the above fracture and a dislocation of the left elbow. He presents for surgical treatment. COMPANY: ITS NOTE: Juliet Mcdaniel PA-C was present for the entire surgical procedure as my business office assistant. In my medical opinion her skill and care was necessary for proper management of this patient. PROCEDURE: The patient was brought to the operating room and anesthetized in the supine position. This patient was positioned with the arm on the arm table. Fluoroscopy was used for visualization. A timeout was done. Antibiotics were given within 1 hour time window. The left arm was scrubbed with alcohol followed by Hibiclens followed by ChloraPrep and draped sterilely. A tourniquet was placed after exsanguination the tourniquet was inflated to 250 mmHg. A volar incision was made along the flexor carpi radialis tendon. The pronator quadratus was lifted from its radial attachment. The fracture was visualized. This was brought into a reduced position and held. This was a highly comminuted fracture and needed multiple pins to help hold it in proper position during application of the plate. A volar plate was positioned and held provisionally. Intraoperative x-ray showed excellent alignment. Multiple distal locking screws were placed as well as shaft screws. The fracture was reduced near anatomically. Intraoperative x-rays were obtained confirming the same. The tourniquet was let down. Hemostasis was controlled with the bipolar cautery. The wound was dry. The fascia was closed with 2-0 Vicryl suture. The skin and subcutaneous tissue was approximated with interrupted 3-0 nylon in a mattress fashion. A sterile dressing was applied. The left elbow was evaluated under anesthesia. In full extension it had only a few degrees of instability to varus valgus stress. Intraoperative x-ray showed that there was near anatomic alignment. There is no evidence of residual dislocation or significant subluxation. A long-arm splint was applied and positioned. The patient was awakened and taken to the recovery room in satisfactory condition. No complication was identified. FINDINGS: There was a highly comminuted intra-articular fracture of the distal radius. The final alignment appeared to be excellent. No complication was appreciated.
--- NOTE | 2018-10-03 09:37 | XR ---
EXAM DATE: 10/03/2018 9:34 AM EST AGE/SEX: 48 years / Male INDICATIONS: Post-op ORIF left distal radius. CLINICAL DATA: This is the patient's subsequent encounter. Patient reports that signs and symptoms h ave been present for 2 days and indicates a pain score of Nonresponsive. MEDICAL/SURGICAL HISTORY: Non-responsive. Non-responsive. COMPARISON: [facility] – [place], FOREARM LEFT 2V, 10/02/2018. . FINDINGS: 2 spot images obtained in the operating room during a procedure demonstrates placement of an anterior distal radial side plate with multiple interlocking screws. There is improved anatomic alignment of the comminuted distal radial fracture. CONCLUSION: Improved alignment of the distal radial fracture following ORIF. Electronically signed by: Ruperto Zaldivar MD Board Certified Radiologist 10/03/2018 9:35 AM EST
[2018-10-03] MEDS ORDERED: fentaNYL Citrate Inj 100 MCG/2 ML Ampul ONE (09:44)
[2018-10-03] MEDS: ceFAZolin 1 GM Premix Inj 1 GM/50 ML PIGGYBACK IV.SIG SCH ×2 (12:09→18:00)
--- NOTE | 2018-10-03 12:33 | P.PN ---
Subjective Interval history: S/P ORIF left distal radius fracture with volar plate and screws. Evaluation of left elbow under anesthesia Painful post-op Physical Exam Vital signs: Vital Signs 10/02/18 15:21 10/02/18 15:22 10/02/18 15:38 Temperature 99 F Pulse Rate 96 H Respiratory Rate 16 Blood Pressure 161/92 H Pulse Oximetry 99 99 99 10/02/18 15:49 10/02/18 16:44 10/02/18 18:22 Temperature Pulse Rate 93 H 97 H Respiratory Rate 16 Blood Pressure 164/94 H Pulse Oximetry 98 97 98 10/02/18 20:00 10/02/18 23:09 10/03/18 03:06 Temperature 100.0 F H 99.3 F 99.2 F Pulse Rate 98 H 91 H 84 Respiratory Rate 18 17 17 Blood Pressure 130/81 125/77 124/77 Pulse Oximetry 96 98 98 10/03/18 09:40 10/03/18 09:45 10/03/18 10:00 Temperature 98.1 F Pulse Rate 91 H 87 89 Respiratory Rate 16 16 16 Blood Pressure 134/80 138/86 139/90 Pulse Oximetry 100 100 94 L 10/03/18 10:15 10/03/18 10:25 10/03/18 10:30 Temperature 98.4 F Pulse Rate 90 91 H Respiratory Rate 16 17 Blood Pressure 138/89 137/80 Pulse Oximetry 95 95 95 10/03/18 12:00 Temperature 99.4 F Pulse Rate 87 Respiratory Rate 18 Blood Pressure 138/83 Pulse Oximetry 94 L Intake & Output 10/02/18 10/03/18 10/03/18 18:59 06:59 18:59 Intake Total 900 / 900 Output Total 550 / 550 25 / Balance -550 / -550 875 / 875 Weight 82 kg 81.8 kg Intake: IV 100 / 100 Ancef 1 GM Premix Inj 2 gm In 100 / 100 100 ml @ 0 mls/hr IV.SIG .[facility] Rx#:[id number] Anesthesia Amount 800 / 800 Output: Urine 550 / 550 Estimated Blood Loss 25 / Other: Date of Last Bowel Movement 10/02/18 10/02/18 Weight On Admission 82 kg Narrative: GENERAL: 48-year-old well-nourished, well developed male lying in bed. SKIN: Warm and dry. CARDIOVASCULAR: Regular rate and rhythm. RESPIRATORY: No accessory muscle use. Lungs clear to auscultation bilaterally. GASTROINTESTINAL: Abdomen soft, non-tender, nondistended. + BS. MUSCULOSKELETAL: Extremities without cyanosis, or edema. LUE soft splint and sling in place. MAEW, + perfused NEUROLOGICAL: Awake and alert. Normal speech. Results - Labs CBC & Chem 7: 10/04/18 04:01 10/04/18 04:01 Laboratory Results - last 24 hr 10/02/18 10/02/18 10/02/18 15:00 15:00 15:00 WBC 5.7 RBC 4.37 L Hgb 14.7 POC Hgb (Calc) 13.9 Hct 40.3 POC Hct 41.0 MCV 92.3 MCH 33.7 MCHC 36.5 H RDW 13.2 Plt Count 166 MPV 7.8 Prelim Diff (Auto) Machine Assistant Neut % (Auto) 49.0 Lymph % (Auto) 41.8 [place] % (Auto) 7.9 Eos % (Auto) 0.9 Baso % (Auto) 0.4 Neut # (Auto) 2.8 Lymph # (Auto) 2.4 [place] # (Auto) 0.5 Eos # (Auto) 0.1 Baso # (Auto) 0.0 WBC Differential . Differential Comment Auto diff final PT 10.7 INR 1.1 APTT 24.7 POC Sodium 140 POC Potassium 3.7 POC Chloride 100 L POC BUN 12 POC Creatinine 1.0 POC Glucose 128 H Blood Type Antibody Screen 10/02/18 15:00 WBC RBC Hgb POC Hgb (Calc) Hct POC Hct MCV MCH MCHC RDW Plt Count MPV Prelim Diff (Auto) Neut % (Auto) Lymph % (Auto) [place] % (Auto) Eos % (Auto) Baso % (Auto) Neut # (Auto) Lymph # (Auto) [place] # (Auto) Eos # (Auto) Baso # (Auto) WBC Differential Differential Comment PT INR APTT POC Sodium POC Potassium POC Chloride POC BUN POC Creatinine POC Glucose Blood Type O Positive Antibody Screen Negative - Imaging Impressions Forearm X-Ray 10/02/18 00:00 CONCLUSION: Reasonable alignment at the wrist. Dedicated elbow films are suggested to evaluate the alignment at the elbow. Chest X-Ray 10/02/18 14:59 CONCLUSION: Negative examination. Pelvis X-Ray 10/02/18 14:59 CONCLUSION: 1. No acute fracture or dislocation. 2. Mild degenerative changes involving the hips and lower lumbar spine. Radius/Ulna X-Ray 10/02/18 15:03 CONCLUSION: 1. Acute dislocation of the distal humerus in relation to the radius and ulna. 2. Comminuted displaced fracture of the distal radius which is incompletely evaluated. Dedicated left wrist series would be helpful for further characterization of this finding. Abdomen/Pelvis CT 10/02/18 15:15 CONCLUSION: 1. No acute intra-abdominal trauma. 2. Uncomplicated colonic diverticulosis. 3. Degenerative changes and scoliosis of the thoracolumbar spine. Cervical Spine CT 10/02/18 15:15 CONCLUSION: 1. Moderate right neuroforaminal narrowing and mild left neuroforaminal at C4- 5 and C5-6, mild left neuroforaminal narrowing at C6-7 and mild right neuroforaminal narrowing at C3-4. 2. No acute fracture or prevertebral soft tissue swelling. 3. Diffuse cervical spondylosis as described above. Chest CT 10/02/18 15:15 CONCLUSION: 1. No acute intrathoracic trauma. 2. Mild bibasilar posterior atelectatic changes. 3. Degenerative changes are noted throughout the thoracic spine. Head CT 10/02/18 15:15 CONCLUSION: 1. Negative CT Head non contrast. . Elbow CT 10/02/18 15:42 CONCLUSION: 1. Tiny bony flake adjacent to the medial epicondyle of the distal humerus consistent with probable tiny avulsion fracture. 2. Questionable very subtle nondisplaced fracture involving the proximal ulna. The proximal radius appears to be intact. 3. Diffuse soft tissue swelling is noted surrounding the elbow. MRI of the elbow would be more sensitive for soft tissue abnormalities if clinically indicated. 4. Olecranon spur is noted. 5. The previously noted elbow dislocation has been successfully reduced. Wrist CT 10/02/18 15:42 CONCLUSION: 1. Acute comminuted impacted fracture involving the distal radius with involvement of the articular surface. 2. Mild degenerative changes are noted involving the first carpometacarpal joint. Elbow X-Ray 10/02/18 16:18 CONCLUSION: 1. Successful closed reduction of the elbow dislocation with no definite underlying palpable fracture identified on these limited films. A cast has been applied to the arm. 2. Comminuted fracture involving the distal radius is noted and involves the articular surface. Wrist X-Ray 10/03/18 00:00 CONCLUSION: Improved alignment of the distal radial fracture following ORIF. Assessment and Plan - Plan [place]: Fell off a ladder from 15ft landing on a dumpster. ? LOC. GCS = 15. INJURIES: LEFT radius fx LEFT humerus dislocation PMHx: Tobacco use LEFT radius fx, LEFT humerus dislocation Orthopedics consulted 10/02: LEFT wrist and elbow reduced 10/03: ORIF left distal radius fracture with volar plate and screws. Evaluation of left elbow under anesthesia Pain control Bowel regimen OOB- PT and OT ordered ?WBS LUE Plan of care d/w patient at bedside. Collaborating Trauma surgeon agrees with plan. Case management consulted to assist with discharge planning.
[2018-10-03 13:27] LABS: Hemoglobin 14.6 gm/dL (13.0-17.0); Mean Corpuscular HGB Conc 34.8 % (32.0-36.0); Mean Corpuscular Hemoglobin 32.4 pg (27.0-34.0); Mean Corpuscular Volume 93.2 fL (80.0-100.0); Mean Platelet Volume 7.9 fL (7.0-11.0); Platelet Count 181 th/mm3 (150-450); Red Cell Distribution Width 13.1 % (11.6-17.2); White Blood Count 8.4 th/mm3 (4.0-11.0)
[2018-10-03 13:44] LABS: Anion Gap 7 meq/L (5-15); Blood Urea Nitrogen 11 mg/dL (7-18); Calcium 8.1 mg/dL (8.5-10.1); Carbon Dioxide 29.2 meq/L (21.0-32.0); Chloride 101 meq/L (98-107); Glomerular Filtration Rate Greater Than 89 mL/min (>89); Glucose,Random 131 mg/dL (74-106); Potassium 3.8 meq/L (3.5-5.1); Sodium 137 meq/L (136-145)
[2018-10-03] MEDS: Multivitamin/Minerals Therapeutic Tablet PO SCH (20:33)
[2018-10-03] MEDS: Sod Chloride 0.9% Inj 1,000 ML IV.CONT SCH ×2 (21:15→22:47)
[2018-10-04] MEDS: ceFAZolin 1 GM Premix Inj 1 GM/50 ML PIGGYBACK IV.SIG SCH (00:47)
[2018-10-04 04:14] LABS: Hematocrit 37.9 % (39.0-51.0); Hemoglobin 13.8 gm/dL (13.0-17.0); Mean Corpuscular Hemoglobin 32.9 pg (27.0-34.0); Mean Corpuscular Volume 90.6 fL (80.0-100.0); Platelet Count 188 th/mm3 (150-450); Red Blood Count 4.19 mil/mm3 (4.50-5.90); Red Cell Distribution Width 12.9 % (11.6-17.2); White Blood Count 9.7 th/mm3 (4.0-11.0)
[2018-10-04 04:21] LABS: Mean Corpuscular HGB Conc 36.3 % (32.0-36.0)
[2018-10-04 04:39] LABS: Anion Gap 6 meq/L (5-15); Blood Urea Nitrogen 10 mg/dL (7-18); Calcium 8.3 mg/dL (8.5-10.1); Carbon Dioxide 28.7 meq/L (21.0-32.0); Chloride 101 meq/L (98-107); Glomerular Filtration Rate Greater Than 89 mL/min (>89); Glucose,Random 128 mg/dL (74-106); Potassium 4.1 meq/L (3.5-5.1); Sodium 136 meq/L (136-145)
--- NOTE | 2018-10-04 07:53 | P.PNOP ---
Subjective Interval history: Moderate left arm pain. Sensation ok in fingers. Uneventful night last night. He has questions about surgery. No new CP or SOB. Physical Exam Vital signs: Vital Signs 10/03/18 09:40 10/03/18 09:45 10/03/18 10:00 Temperature 98.1 F Pulse Rate 91 H 87 89 Respiratory Rate 16 16 16 Blood Pressure 134/80 138/86 139/90 Pulse Oximetry 100 100 94 L 10/03/18 10:15 10/03/18 10:25 10/03/18 10:30 Temperature 98.4 F Pulse Rate 90 91 H Respiratory Rate 16 17 Blood Pressure 138/89 137/80 Pulse Oximetry 95 95 95 10/03/18 12:00 10/03/18 13:05 10/03/18 16:00 Temperature 99.4 F 98.1 F Pulse Rate 87 79 Respiratory Rate 18 16 Blood Pressure 138/83 121/68 Pulse Oximetry 94 L 95 96 10/03/18 20:00 10/04/18 00:00 10/04/18 04:00 Temperature 98.7 F 98.1 F 96.8 F L Pulse Rate 99 H 80 76 Respiratory Rate 20 20 20 Blood Pressure 148/82 H 127/79 149/86 H Pulse Oximetry 94 L 96 97 Intake & Output 10/03/18 10/04/18 10/04/18 18:59 06:59 18:59 Intake Total 950 / 950 2280 / 2280 Output Total 25 / 25 Balance 925 / 925 2280 / 2280 Weight 81.8 kg Intake: IV 150 / 150 1600 / 1600 LR 1000 mL Inj 1,000 ML @ 80 500 / 500 mls/hr IV.CONT .[id number] [facility] Rx# :[id number] NS Inj 1,000 ML @ 100 mls/hr IV 1000 / 1000 .CONT .Q10H [facility] Rx#:[id number] Ancef 1 GM Premix Inj 1 gm In 150 / 150 100 / 100 50 ml @ 100 mls/hr IV.SIG Q6H [facility] Rx#:[id number] Oral 680 / 680 Anesthesia Amount 800 / 800 Output: Estimated Blood Loss 25 / 25 Other: # Voids 2 Date of Last Bowel Movement 10/02/18 Narrative: Laying in bed No acute distress Sling left arm Left UE Splint/dressing intact, mild swelling fingers, wiggles fingers freely Clinical Applications Manager strength intact, +warmth, +cap refill - Constitutional no acute distress Results - Labs CBC & Chem 7: 10/04/18 04:01 10/04/18 04:01 Laboratory Results - last 24 hr 10/03/18 10/03/18 10/04/18 12:45 12:45 04:01 WBC 8.4 9.7 RBC 4.50 4.19 L Hgb 14.6 13.8 Hct 42.0 37.9 L MCV 93.2 90.6 MCH 32.4 32.9 MCHC 34.8 36.3 H RDW 13.1 12.9 Plt Count 181 188 MPV 7.9 8.0 Sodium 137 Potassium 3.8 Chloride 101 Carbon Dioxide 29.2 Anion Gap 7 BUN 11 Creatinine 1.00 Estimated GFR Greater than 89 Random Glucose 131 H Calcium 8.1 L 10/04/18 04:01 WBC RBC Hgb Hct MCV MCH MCHC RDW Plt Count MPV Sodium 136 Potassium 4.1 Chloride 101 Carbon Dioxide 28.7 Anion Gap 6 BUN 10 Creatinine 0.91 Estimated GFR Greater than 89 Random Glucose 128 H Calcium 8.3 L - Imaging Impressions Wrist X-Ray 10/03/18 00:00 CONCLUSION: Improved alignment of the distal radial fracture following ORIF. - Procedures Open treatment internal fixation left wrist, comminuted Assessment and Plan - Ortho Post Op Day # 1 - Assessment and Plan Comminuted intra-articular fracture left distal radius. Dislocation left elbow. Fracture left proximal ulna, coronoid process pod#1 s/p ORIF left wrist. Pain moderately controlled. Ortho stable. Ok for d/c home today per ortho. Continue sling multimedia authoring specialist. Clinical Applications Manager strength exercises ok but limit use of left arm. Keep splint clean and dry. Do not remove. F/U in 2-3 weeks. Will likely need immobilization of the wrist for 7-8 weeks due to fracture comminution.
[2018-10-04] MEDS: Sodium Chloride 0.9% 2 ML Flush BID IV.FLUSH SCH (08:35)
[2018-10-04] MEDS: Famotidine 20 MG Tablet PO SCH (08:35)
[2018-10-04] MEDS: Multivitamin/Minerals Therapeutic Tablet PO SCH (08:35)
[2018-10-04] MEDS: Senna/Docusate Sodium 8.6/50 MG Tablet PO SCH (08:35)
[2018-10-04] MEDS: Sod Chloride 0.9% Inj 1,000 ML IV.CONT SCH (08:45)
[2018-10-04 08:52] VITALS: RESP 16
[2018-10-04 12:25] VITALS: BP 144/69; PULSE 81; TEMP 98.4; O2SAT 96
--- NOTE | 2018-10-04 13:01 | P.DS ---
Date of admission: 10/02/18 15:35 Primary care physician: UNKNOWN Brief History from admission: S/P Fall DS: Diagnosis - Discharge Diagnosis (1) Fracture of left distal radius Status: Acute DS: Medications - Discharge Medications Prescriptions: hydrocodone-acetaminophen 1 tab PO Q4H PRN #14 tab PRN Reason: Acute Pain DS: Summary Hospital Course: [place]: Fell off a ladder from 15ft landing on a dumpster. ? LOC. GCS = 15. INJURIES: LEFT radius fx LEFT humerus dislocation PMHx: Tobacco use LEFT radius fx, LEFT humerus dislocation Orthopedics consulted, follow-up as outpatient 10/02: LEFT wrist and elbow reduced 10/03: ORIF left distal radius fracture with volar plate and screws. Evaluation of left elbow under anesthesia Pain control Bowel regimen OOB- PT and OT ordered NWB LUE, maintain sling at all times Follow-up in 1 week with PCP Plan of care discussed with patient at bedside. Collaborating Trauma surgeon agrees with plan. Case management consulted to assist with discharge planning. Patient is clear from trauma surgery standpoint to safely discharge home. - Time Spent with Patient Total time spent providing and/or coordinating discharge services: Greater than 30 minutes - Quality: VTE Deep Vein Thrombosis/Pulmonary Embolism Present on Admission: No Exam Vital signs: Vital Signs 10/03/18 13:05 10/03/18 16:00 10/03/18 20:00 Temperature 98.1 F 98.7 F Pulse Rate 79 99 H Respiratory Rate 16 20 Blood Pressure 121/68 148/82 H Pulse Oximetry 95 96 94 L 10/04/18 00:00 10/04/18 04:00 10/04/18 07:40 Temperature 98.1 F 96.8 F L 98.2 F Pulse Rate 80 76 72 Respiratory Rate 20 20 16 Blood Pressure 127/79 149/86 H 138/82 Pulse Oximetry 96 97 97 10/04/18 11:12 Temperature 98.4 F Pulse Rate 81 Respiratory Rate 16 Blood Pressure 144/69 H Pulse Oximetry 96 Intake & Output 10/03/18 10/04/18 10/04/18 18:59 06:59 18:59 Intake Total 950 / 950 2280 / 2280 Output Total 25 / 25 Balance 925 / 925 2280 / 2280 Weight 81.8 kg Intake: IV 150 / 150 1600 / 1600 LR 1000 mL Inj 1,000 ML @ 80 500 / 500 mls/hr IV.CONT .[id number] [facility] Rx# :[id number] NS Inj 1,000 ML @ 100 mls/hr IV 1000 / 1000 .CONT .Q10H [facility] Rx#:[id number] Ancef 1 GM Premix Inj 1 gm In 150 / 150 100 / 100 50 ml @ 100 mls/hr IV.SIG Q6H [facility] Rx#:[id number] Oral 680 / 680 Anesthesia Amount 800 / 800 Output: Estimated Blood Loss 25 / 25 Other: # Voids 2 Date of Last Bowel Movement 10/02/18 10/02/18 Narrative: GENERAL: 48-year-old well-nourished, well developed male sitting up in bed. SKIN: Warm and dry. CARDIOVASCULAR: Regular rate and rhythm. RESPIRATORY: No accessory muscle use. Lungs clear to auscultation bilaterally. GASTROINTESTINAL: Abdomen soft, non-tender, nondistended. + BS. MUSCULOSKELETAL: Extremities without cyanosis, or edema. LUE soft splint and sling in place. MAEW, + perfused NEUROLOGICAL: Awake and alert. Normal speech. Results Procedures completed during hospitalization: Open treatment internal fixation left wrist, comminuted Labs on day of discharge: Labs from last 24 hours 10/04/18 10/04/18 10/03/18 04:01 04:01 12:45 WBC 9.7 8.4 RBC 4.19 L 4.50 Hgb 13.8 14.6 Hct 37.9 L 42.0 MCV 90.6 93.2 MCH 32.9 32.4 MCHC 36.3 H 34.8 RDW 12.9 13.1 Plt Count 188 181 MPV 8.0 7.9 Sodium 136 Potassium 4.1 Chloride 101 Carbon Dioxide 28.7 Anion Gap 6 BUN 10 Creatinine 0.91 Estimated GFR Greater than 89 Random Glucose 128 H Calcium 8.3 L 10/03/18 12:45 WBC RBC Hgb Hct MCV MCH MCHC RDW Plt Count MPV Sodium 137 Potassium 3.8 Chloride 101 Carbon Dioxide 29.2 Anion Gap 7 BUN 11 Creatinine 1.00 Estimated GFR Greater than 89 Random Glucose 131 H Calcium 8.1 L - Impressions ITS Impressions Forearm X-Ray 10/02/18 00:00 CONCLUSION: Reasonable alignment at the wrist. Dedicated elbow films are suggested to evaluate the alignment at the elbow. Chest X-Ray 10/02/18 14:59 CONCLUSION: Negative examination. Pelvis X-Ray 10/02/18 14:59 CONCLUSION: 1. No acute fracture or dislocation. 2. Mild degenerative changes involving the hips and lower lumbar spine. Radius/Ulna X-Ray 10/02/18 15:03 CONCLUSION: 1. Acute dislocation of the distal humerus in relation to the radius and ulna. 2. Comminuted displaced fracture of the distal radius which is incompletely evaluated. Dedicated left wrist series would be helpful for further characterization of this finding. Abdomen/Pelvis CT 10/02/18 15:15 CONCLUSION: 1. No acute intra-abdominal trauma. 2. Uncomplicated colonic diverticulosis. 3. Degenerative changes and scoliosis of the thoracolumbar spine. Cervical Spine CT 10/02/18 15:15 CONCLUSION: 1. Moderate right neuroforaminal narrowing and mild left neuroforaminal at C4- 5 and C5-6, mild left neuroforaminal narrowing at C6-7 and mild right neuroforaminal narrowing at C3-4. 2. No acute fracture or prevertebral soft tissue swelling. 3. Diffuse cervical spondylosis as described above. Chest CT 10/02/18 15:15 CONCLUSION: 1. No acute intrathoracic trauma. 2. Mild bibasilar posterior atelectatic changes. 3. Degenerative changes are noted throughout the thoracic spine. Head CT 10/02/18 15:15 CONCLUSION: 1. Negative CT Head non contrast. . Elbow CT 10/02/18 15:42 CONCLUSION: 1. Tiny bony flake adjacent to the medial epicondyle of the distal humerus consistent with probable tiny avulsion fracture. 2. Questionable very subtle nondisplaced fracture involving the proximal ulna. The proximal radius appears to be intact. 3. Diffuse soft tissue swelling is noted surrounding the elbow. MRI of the elbow would be more sensitive for soft tissue abnormalities if clinically indicated. 4. Olecranon spur is noted. 5. The previously noted elbow dislocation has been successfully reduced. Wrist CT 10/02/18 15:42 CONCLUSION: 1. Acute comminuted impacted fracture involving the distal radius with involvement of the articular surface. 2. Mild degenerative changes are noted involving the first carpometacarpal joint. Elbow X-Ray 10/02/18 16:18 CONCLUSION: 1. Successful closed reduction of the elbow dislocation with no definite underlying palpable fracture identified on these limited films. A cast has been applied to the arm. 2. Comminuted fracture involving the distal radius is noted and involves the articular surface. Wrist X-Ray 10/03/18 00:00 CONCLUSION: Improved alignment of the distal radial fracture following ORIF. Discharge Plan - Discharge Disposition Patient Disposition: 01 Discharge Home - Discharge Condition Condition: Good - Discharge Order Discharge Orders: Discharge Order (Routine); Ordered 10/04/18 Ordered By: Krunal Bryant - Physicians Team Primary Care Provider: UNKNOWN, Attending Provider: Jeferson Sinha Other Providers: Beck Garza MD ; Cedric Hunt MD ; [employer] ; Riley Duque MD ; Shital Pendleton ARNP ; Boogie oMrales MD ; Suki Baltazar MD ; Krunal Bryant ARNP ; Jeferson Sinha MD ; Amarjit Washington MD
== END 2018-10-04 13:44 | disposition home or self-care (01) ==
LOC: NEPI 14:56 → EDBD 15:35 → NEDA 15:35 → N06 19:30
PROVIDERS: ADMIT Surgery; ATTEND Surgery